=== PATIENT | female | born 1980 | race Caucasian/White ===

== ENCOUNTER → 2021-09-21 | Outpatient (CLI) | payer MEDICAID ==
[2015-04-03 16:30] VITALS: BP 144/83
--- NOTE | 2021-09-22 12:31 | RAD ---
INDICATION: 41 years of age asymptomatic female patient presents for palpable abnormality in the left breast and contralateral screening mammography. TECHNIQUE: Bilateral full field craniocaudal and mediolateral oblique images were obtained using dig ital technique and also analyzed with computer-aided detection software. In addition diagnostic evalu ation of the left breast was performed COMPARISON: This is a baseline examination. BREAST COMPOSITION: Category B: There are scattered fibroglandular densities. FINDINGS: Benign calcifications are present. The parenchymal pattern appears stable. A left breast marker denotes site of palpable abnormality. No suspicious masses, microcalcifications or architectural distortion is present to suggest malignanc y in either breast. The visualized axillae are unremarkable. Given the palpable abnormalities dedicated sonographic imaging was performed. ULTRASOUND FINDINGS: Targeted ultrasound of the patient detected area of concern was performed. 6:00 position, 3 cm from the nipple: A mixed hyperechoic and hypoechoic mass of circumscribed margins is lobulated, measuring 1.8 x 0.7 x 2 cm. This demonstrates internal heterogeneous echogenicity with internal Doppler flow. IMPRESSION: Left breast mass for which biopsy is recommended with ultrasound guided RECOMMENDATION: Biopsy recommended of the left breast mass which can be performed with ultrasound nadira michelle. BIRADS 4: SUSPICIOUS Recommendation of ultrasound guided left breast mass biopsy discussed with Fortunato Rhodes A ssistant on 09/22/2021, 12:29 PM. This study was interpreted with the benefit of Computerized Aided Detection (CAD). Patient information is entered into the reminder system with a target due date for the next screening mammogram. Mammography is the most sensitive method for finding small breast cancers, but it does not detect the m all and is not a substitute for careful clinical examination. A negative mammogram does not negate a clinically suspicious finding and should not result in delay in biopsying a clinically suspicious a bnormality. "Our facility is accredited by the [employer] Mammography Program." Electronically signed by: Guille Denney MD (09/22/2021 12:29 PM) [facility]
== END ==
LOC: MAMMO 12:35
PROVIDERS: ATTEND Physician Assistant
DX: N63.24 Unspecified lump in the left breast, lower inner quadrant (principal)
CPT/HCPCS: 76642; 77066